=== PATIENT | female | born 1985 | race Caucasian/White ===

== ENCOUNTER 2025-05-16 16:28 | Emergency (ER) | payer OTHER, SELFPAY ==
[2025-05-16 16:30] VITALS: BP 132/92
--- NOTE | 2025-05-16 16:53 | ED.GENMED ---
History of Present Illness
General
Chief Complaint: Abdominal Symptoms
Source: patient
Exam Limitations: none
Time Seen by Provider: 05/16/25 16:38
History of Present Illness
History of Present Illness:
39-year-old female with a history of migraines presents with right retrobulbar headache nausea vomiting general nausea that started at 4 AM. She took a shot of Wegovy yesterday.. [place]. She states she
normally gets nauseous with her Wegovy which she has not had in 3 weeks. She gets headaches on a daily basis. Has had multiple ER visits for the headaches. No severe abdominal pain no fever no photophobia or other complaints. No focal neurologic
symptoms.
Past History
Past History
ED Past Medical History: Other (Recurrent migraines)
ED Past Surgical History: Cholecystectomy and
Review of Systems
Review of Systems
All Other Systems: Not applicable
Constitutional: Denies fever or chills
Respiratory: Reports no symptoms
Cardiac: Reports no symptoms
Phy Exam
Physical Exam
Physical Exam:
GENERAL: Alert and oriented in no apparent distress. But appears uncomfortable.
EYE: Orbits normal. Pupils reactive
NECK: Supple, no significant adenopathy.
ENT: Pharynx without erythema
CARDIAC: Regular rate and rhythm without any obvious murmurs.
LUNGS: Clear breath sounds,normal
ABDOMEN: Soft, mild epigastric tenderness. No rebound or guarding no mass or hernia.
NEUROLOGICAL: Alert and oriented , grossly non-focal
SKIN: Warm and dry, no rash or lesion, no discoloration, skin intact.
MUSCULOSKELETAL: No edema,no deformity.Good color
PSYCH: Normal and appropriate interaction.
Course
Orders/Labs/Results
Orders:
Orders
05/16/25 16:53
Electrocardiogram (*1) Stat
Reason for Study: Other
Other Reason for Exam: Headache
Cardiac Monitoring- Treatment ONCE
EKG- Treatment ONCE
IV Insert/Care/Rem.- Treatment PRN
0.9% Sodium Chloride 1000 ml [Nss] 1,000 ml IV BOLUS
Diphenhydramine [Benadryl] 25 mg IV NOW STA
Ketorolac [Toradol] 15 mg IV NOW STA
Metoclopramide [Reglan] 10 mg IV NOW STA
Test Result ONCE
05/16/25 16:59
Ketorolac [Toradol] 15 mg .ROUTE .STK-MED ONE
05/16/25 17:05
Complete Blood Count/With Diff Urgent
Comprehensive Metabolic Panel Urgent
HCG, Serum Qualitative Screen Urgent
Lipase Urgent
Abnormal Lab Results
05/16/25
17:05
Hct 36.7 L %
(37.0-47.0)
Absolute Neuts (auto) 8.4 H 10^3/uL
(1.4-6.5)
Neutrophils % 77.3 H %
(42.2-75.2)
Lymphocytes % 17.5 L %
(20.5-51.1)
Creatinine 0.5 L mg/dL
(0.6-1.0)
Glucose 107 H mg/dl
(70-99)
05/16/25 17:05
05/16/25 17:05
Vital Signs
Initial and Last Documented VS:
Initial Vital Signs
Temp Pulse Resp BP Pulse Ox
97.8 F 105 20 132/92 99
05/16/25 16:30 05/16/25 16:30 05/16/25 16:30 05/16/25 16:30 05/16/25 16:30
Last Documented Vital Signs
Temp Pulse Resp BP Pulse Ox
97.8 F 105 20 112/69 99
05/16/25 16:30 05/16/25 16:30 05/16/25 16:30 05/16/25 18:20 05/16/25 16:54
MDM/Problems Addressed
Differential Diagnosis Includes:
Patient normally gets nauseous after her Wegovy. However she has not had it in 3 weeks. She also gets migraine headaches that have required ER visits multiple times in the past. She is on beta-oscar chronically. She did not take it today. She
states the headache feels like her typical migraine and she has been seen by neurology in the past. See no indication for stat imaging for this reason. Her abdomen is nonsurgical. Likely all related to her migraine and Wegovy. Will treat
symptomatically and reevaluate to see whether she needs further radiologic testing
*Pulse Oximetry
SaO2: 99
Oxygen Mode of Delivery: Room air
Patient hypoxic: no
*Critical Care Note
Total Time (30-74mins, 75-104mins- exclusive of procedures): Not Applicable
Update Note
Update Note:
1814... Patient feeling much better. Headache essentially resolved. Nausea has gone away. Abdomen was rechecked and benign. She is awake alert in no distress. I offered further observation, testing p.o. in office and radiologic testing
specifically of her head. However she again has had frequent episodes of migraines like this. She is neurologically stable. She is very comfortable with holding on further testing and would like to go to follow-up.
Patient ambulated well out of the ER
ED Attending Note
-
Portions of this chart may have been created with voice recognition software.� Occasional wrong word or��sound alike� substitutions may have occurred due to the inherent limitations of voice recognition software.
Discharge Plan
Departure
Patient Disposition: Home (Routine Discharge)
Date of Disposition: 05/16/25
Time of Disposition: 18:13
Patient with high blood pressure during this ER visit?: Yes
Discharge Problem:
Acute migraine headache, Nausea secondary to Wegovy
Instructions: Nausea and Vomiting, Adult (DC), Headache in adults - ED (DC), BLOOD PRESSURE
Prescriptions:
New
ondansetron 4 mg tablet,disintegrating
4 mg PO TIDPRN PRN (Reason: nausea/vomiting) Qty: 14 0RF
Referrals:
UNKNOWN - PT DOES,NOT KNOW [Family Provider]
Activity Restrictions/Additional Instructions:
Light diet
Take the propranolol when you get home
Advil and/or Tylenol for pain or recurring headache
However if the headache changes in character and feels different than a migraine or you develop acute abdominal pain or persistent nausea and vomiting please return immediately for reevaluation
Interventions
Interventions:
*Risk Screen - Suicide Last Done: 05/16/25 16:30
*Neglect/Abuse Screening Last Done: 05/16/25 16:30
*Nursing Disposition Last Done: 05/16/25 18:26
CC-Wgmmzb-Dwxecmiyed Assessment Last Done: 05/16/25 17:29
Discharge Date and Time
Discharge Date/Time: 05/16/25 18:26
Print Language: SLOVENIAN
[2025-05-16] MEDS: NSS 1000 IV (17:06)
[2025-05-16] MEDS: REGLAN 10 MG IV (17:06)
[2025-05-16] MEDS: TORADOL 15 MG IV (17:07)
[2025-05-16] MEDS: BENADRYL 25 MG IV (17:07)
[2025-05-16 17:22] LABS: Hematocrit 36.7 % (37.0-47.0); Hemoglobin 12.5 g/dL (12.0-16.0); Mean Corp Hgb Conc. 34.1 g/dL (33.0-37.0); Mean Corpuscular Volume 85.2 fL (81.0-99.0); Nucleated Red Blood Cells % 0 %; Platelet Count 256 10^3/uL (130-400); Red Cell Dist. Width 12.3 % (11.5-14.5)
[2025-05-16 17:36] LABS: ALT (SGPT) 31 U/L (0-35); AST (SGOT) 22 U/L (14-36); Albumin 4.5 g/dl (3.5-5.0); Alkaline Phosphatase 83 U/L (38-126); Blood Urea Nitrogen 11 mg/dl (7-17); Calcium 9.5 mg/dl (8.4-10.2); Carbon Dioxide 23 mmol/L (22-30); Chloride 105 mmol/L (98-107); Glucose 107 mg/dl (70-99); Lipase 158 U/L (23-300); Potassium 3.7 mmol/L (3.5-5.1); Sodium 135 mmol/L (135-145); Total Protein 7.2 g/dl (6.3-8.2); eGFR > 60.00
[2025-05-16 18:20] VITALS: BP 112/69
[2025-05-16 18:44] LABS: HCG, Serum Qualitative Screen Negative
== END 2025-05-16 18:26 | disposition home or self-care (01) ==
LOC: EMR 16:28
PROVIDERS: EMERGENCY PHYSICIAN Emergency Medicine
DX: G43.909 Migraine, unspecified, not intractable, without status migrainosus (principal); R11.0 Nausea; T50.995A Adverse effect of other drugs, medicaments and biological substances, initial encounter
CPT/HCPCS: 99284; 96374; 96375 ×2; 96361; 80053; 83690; 84703; 85025; 93005